=== PATIENT | female | born 1940 | race Caucasian/White ===

== ENCOUNTER → 2018-01-27 | Outpatient (CLI) | payer MEDICARE, BC ==
[~2018-01-27] MED LIST: ATENOLOL25 MG PO; CLARITIN; FOLIC ACID; HYZAAR 25 MG-101 TAB PO; Iron; LEVOTHYROXINE0.05 M1 PO; MULTIVITAMIN PO; NABUMETONE500 MG PO; PREMARIN0.625 MG PO; Pain Med; VITAMIN C500 MG PO
== END ==
LOC: COL.RAD 10:30
DX: M25.512 Pain in left shoulder (principal)
CPT/HCPCS: J3301; Q9967

== ENCOUNTER → 2019-01-16 | Outpatient (CLI) | payer MEDICARE, BC | LOC: COL.RAD 09:15 | DX: M19.012 Primary osteoarthritis, left shoulder (principal) | CPT/HCPCS: J3301; Q9967 ==

== ENCOUNTER → 2019-03-16 | Outpatient (CLI) | payer MEDICARE, BC | LOC: COL.RAD 12:29 | DX: M25.512 Pain in left shoulder (principal) | CPT/HCPCS: J3301; Q9967 ==

== ENCOUNTER → 2021-06-08 | Outpatient (CLI) | payer MEDICARE | LOC: COL.RAD 11:11 | DX: G25.0 Essential tremor (principal); M48.02 Spinal stenosis, cervical region; M47.812 Spondylosis without myelopathy or radiculopathy, cervical region; M43.12 Spondylolisthesis, cervical region ==